=== PATIENT | male | born 1995 | race Two or more races ===

== ENCOUNTER 2016-12-13 11:45 | Emergency (ER) | payer BC ==
--- NOTE | 2016-12-13 12:37 | CPEKG ---
Heart Rate: 103 RR Interval: 583 P-R Interval: 148 QRSD Interval: 82 QT Interval: 316 QTC Interval: 414 P Salters: 73 QRS Salters: 36 T Wave Salters: 20 EKG Severity - BORDERLINE ECG - EKG Impression: SINUS TACHYCARDIA EKG Impression: PROBABLE LEFT ATRIAL ABNORMALITY Electronically Signed By: Coby Reis 13-Dec-2016 15:02:05
--- NOTE | 2016-12-13 12:46 | EDPHY ---
H & P Stated Complaint: in [place] 12/03 c/o diarrhea/cp/throat feels tingly Time Seen by Provider: 12/13/16 12:37 HPI/ROS: CHIEF COMPLAINT: Diarrhea, hand numbness, chest discomfort HISTORY OF PRESENT ILLNESS: This patient is a 21 year old male arriving by private vehicle complaining of paresthesias, chest pain, and diarrhea worsening since Wednesday. He recently travelled to [place] and [place], and returned 12/11/16. Two days ago he began losing sensation in his hands transiently. He had a panic attack in [place] one week ago with similar symptoms. Yesterday, he developed chills, diaphoresis, and tachycardia beginning around 2pm. These symptoms have lasted until 7am this morning. He had six episodes of diarrhea as well, and has two episodes today. He endorses associated abdominal cramping. He denies nausea or vomiting. He currently feels chest pressure in his sternal area. He denies recent illness or cough. REVIEW OF SYSTEMS: A 10 point review of systems was performed and is negative with the exception of the elements mentioned in the history of present illness. - Personal History Current Tetanus/Diphtheria Vaccine: Yes - Medical/Surgical History PMH: Denies Hx Asthma: No Hx Chronic Respiratory Disease: No Hx Diabetes: No Hx Cardiac Disease: No Hx Renal Disease: No Hx Cirrhosis: No Hx Alcoholism: No Hx HIV/AIDS: No Hx Splenectomy or Spleen Trauma: No Other PMH: add - Social History Smoking Status: Current every day smoker Additional Social History: Occasional social alcohol use. No current illicit drug use. [employer]. student. Senior. - Physical Exam Exam: General Appearance: Alert, appears anxious Eyes: Pupils equal and round, no conjunctival pallor or injection ENT, Mouth: Mucous membranes moist Neck: Normal inspection Respiratory: Lungs are clear to auscultation Cardiovascular: Regular tachycardia Gastrointestinal: Abdomen is soft and non- tender Neurological: A&O, nonfocal, normal gait Skin: Warm and dry, no rash Extremities: Nontender, no pedal edema Psychiatric: Mood and affect normal Constitutional: Initial Vital Signs Temperature (C) 36.9 C 12/13/16 11:53 Heart Rate 122 H 12/13/16 11:53 Respiratory Rate 22 H 12/13/16 11:53 Blood Pressure 143/93 H 12/13/16 11:53 O2 Sat (%) 97 12/13/16 11:53 O2 Delivery Mode Room Air Allergies/Adverse Reactions: No Known Allergies Allergy (Unverified 12/13/16 11:53) Home Medications: Medication Instructions Recorded NK [No Known Home Meds] 12/13/16 [id number] 12/13/16 Medical Decision Making - Diagnostics EKG Interpretation: EKG interpreted by me reveals normal sinus tachycardia, rate 103, no ST/T changes. Interpretation: normal EKG ED Course/Re-evaluation: 21 year old male presents with chest discomfort, hand numbness, and diarrhea onset yesterday. Physical exam unremarkable. Sx c/w viral syndrome, likely anxiety superimposed. EKG shows sinus tachycardia. IV established. Plan to administer 1L IV NS and 0.5mg IV Ativan for anxiety and dehydration. Chest x- ray is negative for acute processes. Reassessed patient. He is feeling much better following Ativan administration. Abd soft/NT. No evidence of primary cardiopulm problem. Plan to discharge home in good condition. Follow up and return precautions discussed. He will call in two days for stool sample results. The patient is comfortable with this plan. Differential Diagnosis: includes though not limited to pneumonia, dysrhythmia, severe dehydration, panic attack, appy - Data Points Laboratory Results: Laboratory Results 12/13/16 12:40 12/13/16 12:40 Microbiology Results: MICROBIOLOGY 12/13/16 14:05 Stool Gastrointestinal Tract Panel (PCR) - Final Salmonella Species 12/13/16 14:05 Stool Stool Culture - Preliminary Salmonella Species Medications Given: Discontinued Medications Sodium Chloride (Ns) 1,000 mls @ 0 mls/hr IV EDNOW ONE; Wide Open PRN Reason: Protocol Stop: 12/13/16 12:50 Last Admin: 12/13/16 13:00 Dose: 1,000 mls Lorazepam (Ativan Injection) 0.5 mg IVP EDNOW ONE Stop: 12/13/16 12:50 Last Admin: 12/13/16 13:02 Dose: 0.5 mg Potassium Chloride (Potassium Chloride Oral Liquid) 20 meq PO EDNOW ONE Stop: 12/13/16 13:08 Last Admin: 12/13/16 13:33 Dose: 20 meq Departure - Departure Disposition: Home, Routine, Self-Care Clinical Impression: Diarrhea Condition: Good Instructions: Acute Diarrhea (ED), Anxiety (ED) Additional Instructions: You received a dose of Ativan today. Ativan is a benzodiazepine. Drink plenty of fluids. Take Imodium as directed on the package as needed for diarrhea. Call in 2 days for stool culture results. Return to the emergency department for uncontrollable diarrhea or vomiting, fever, worsening chest pain, or other worsening of condition. Referrals: BEULAH Ward,. [Primary Care Provider] - As per Instructions Report Scribed for: Coby Reis Report Scribed by: Roshni Faustin Date of Report: 12/13/16 Time of Report: 12:47 Physician Review and Approval Statement: 12/13/16 12:47 Portions of this note were transcribed by a medical record librarian. I personally performed a history, physical exam, medical decision making, and confirmed accuracy of information the transcribed note.
[2016-12-13] MEDS ORDERED: NS 1,000 ML IV ONE (12:49)
[2016-12-13] MEDS ORDERED: LORazepam 2 MG/ML INJ IVP ONE (12:49)
[2016-12-13 12:54] LABS: % IMMATURE GRANULYOCYTES 0.2 % (0.0-1.1); ABSOLUTE IMMATURE GRANULOCYTES 0.01 10^3/uL (0.00-0.10); ADD DIFF? NO; ADD MORPH? NO; ADD SCAN? NO; ATYPICAL LYMPHOCYTE FLAG 10 (0-99); FRAGMENT RBC FLAG 0 (0-99); HEMATOCRIT 46.7 % (40.0-51.0); HEMOGLOBIN 16.4 g/dL (13.7-17.5); LEFT SHIFT FLG 0 (0-99); LIPEMIA HEMOLYSIS FLAG 90 (0-99); MEAN CELL HEMOGLOBIN 30.1 pg (27.9-34.1); MEAN CELL HEMOGLOBIN CONCENTR. 35.1 g/dL (32.4-36.7); MEAN CELL VOLUME 85.8 fL (81.5-99.8); PLATELET CLUMPS FLAG 0 (0-99); PLATELET COUNT 166 10^3/uL (150-400); RED BLOOD CELL COUNT 5.44 10^6/uL (4.40-6.38); RED CELL DISTRIBUTION WIDTH 13.1 % (11.5-15.2)
[2016-12-13 13:04] LABS: ANION GAP 14 mEq/L (8-16); CALCIUM 9.7 mg/dL (8.5-10.4); CARBON DIOXIDE 26 mEq/l (22-31); CHLORIDE 97 mEq/L (97-110); CREATININE 0.7 mg/dL (0.7-1.3); GLOMERULAR FILTRATION RATE > 60; GLUCOSE 118 mg/dL (70-100); POTASSIUM 3.2 mEq/L (3.5-5.2); SODIUM 137 mEq/L (134-144)
[2016-12-13] MEDS ORDERED: POTASSIUM CL 20 MEQ/15 ML UDCUP PO ONE (13:07)
[2016-12-13 14:00] VITALS: RESP 16
[2016-12-13 14:08] VITALS: BP 126/84; PULSE 99; TEMP 99; O2SAT 95
== END 2016-12-13 14:06 | disposition home or self-care (01) ==
DX: R19.7 Diarrhea, unspecified (principal); F17.200 Nicotine dependence, unspecified, uncomplicated; E86.9 Volume depletion, unspecified
CPT/HCPCS: 96374; J2060

== ENCOUNTER 2016-12-18 03:06 | Emergency (ER) | payer BC ==
[2016-12-18 03:20] VITALS: BP 116/60; PULSE 97; RESP 16; TEMP 97.7; O2SAT 96
--- NOTE | 2016-12-18 03:24 | EDPHY ---
H & P Stated Complaint: ETOH, Time Seen by Provider: 12/18/16 03:09 HPI/ROS: CHIEF COMPLAINT: Alcohol intoxication HISTORY OF PRESENT ILLNESS: Patient was found in a taxi to be severely intoxicated and therefore they called EMS system. He was difficult to arouse. Patient denies any injuries, denies loss of consciousness, denies any recent trauma. Patient denies coingestion, patient denies suicidal or homicidal behavior. REVIEW OF SYSTEMS: Constitutional: No fever, no chills. Eyes:No visual changes. ENT: No sore throat. Respiratory: No cough, no shortness of breath. Cardiac: No chest pain. Gastrointestinal: No abdominal pain, vomiting or diarrhea. Genitourinary: No hematuria. Musculoskeletal: No back pain. Skin: No rashes. Neurological: No headache. PAST MEDICAL HISTORY: Recent ER visit a few days ago for chest pain PAST SURGICAL HISTORY: None SOCIAL HISTORY: Occasional alcohol use PHYSICAL EXAM: General Appearance: Alert, well hydrated, appropriate, and non-toxic appearing. Head: Atraumatic without scalp tenderness or obvious injury Eyes: Pupils equal, round, reactive to light, no injection. Ears: Clear bilaterally, no perforation, normal landmarks Nose: Atraumatic, no rhinorrhea, clear. Throat: mucus membranes moist. Neck: Supple, non-tender, no lymphadenopathy. Respiratory: No retractions, no distress, no wheezes, and no accessory muscle use. Lungs are clear to auscultation bilaterally. Cardiovascular: Regular rate and rhythm, no murmurs, rubs, or gallops. Gastrointestinal: Abdomen is soft, non-tender, non-distended Musculoskeletal: Normal active ROM of all extremities, atraumatic. Neurological: Alert, appropriate, and interactive. Moves all extremities equally. Skin: No rashes, good turgor, no nodules on palpation. MEDICAL DECISION MAKING: I serially examined this patient since the patient's arrival here in the emergency department. The patient continues to become more and more sober with each examination. I serially questioned the patient and the patient's story given initially has not changed. The patient still denies any trauma, any head injury, and any illicit drug use. At this point, the patient is walking the department freely and is clinically sober. We're discharging the patient to the [facility] in stable condition. The police will take him as there is a warrant for his arrest. Source: Patient, Police - Medical/Surgical History Hx Asthma: No Hx Chronic Respiratory Disease: No Hx Diabetes: No Hx Cardiac Disease: No Hx Renal Disease: No Hx Cirrhosis: No Hx Alcoholism: No Hx HIV/AIDS: No Hx Splenectomy or Spleen Trauma: No Other PMH: add - Social History Smoking Status: Current every day smoker Constitutional: Initial Vital Signs Temperature (C) 36.5 C 12/18/16 03:11 Heart Rate 97 12/18/16 03:11 Respiratory Rate 16 12/18/16 03:11 Blood Pressure 116/60 12/18/16 03:11 O2 Sat (%) 96 12/18/16 03:11 O2 Delivery Mode Room Air Allergies/Adverse Reactions: No Known Allergies Allergy (Unverified 12/18/16 03:10) Home Medications: Medication Instructions Recorded NK [No Known Home Meds] 12/13/16 [id number] 12/13/16 Departure - Departure Disposition: Law Enforcement/Court/Care Home Clinical Impression: Alcoholic intoxication Qualifiers: Complication of substance-induced condition: with delirium Qualified Code(s): F10.921 - Alcohol use, unspecified with intoxication delirium Condition: Good Instructions: Alcohol Intoxication (ED) Referrals: [facility] Hours [Outside] - As per Instructions
== END 2016-12-18 03:33 ==
LOC: EDUNIT#
DX: F10.921 Alcohol use, unspecified with intoxication delirium (principal); F17.200 Nicotine dependence, unspecified, uncomplicated